=== PATIENT | female | born 1970 | race African-American/Black ===

== ENCOUNTER 2023-12-26 13:15 | Emergency (ER) | payer MEDICAID ==
[~2023-12-26] VITALS: Ht 167.6 cm; Wt 90.0 kg
[2023-12-26 13:26] VITALS: O2SAT 100
[2023-12-26] MEDS: KETOROLAC 15MG/ML VIAL IM ONE (14:21)
[2023-12-26] MEDS: ACETAMINOPHEN 500MG TABLET PO ONE (15:36)
[2023-12-26] MEDS ORDERED: LIDO700A15 TP (15:53)
[2023-12-26] MEDS ORDERED: NAPR-1176 MT (15:53)
[2023-12-26 16:07] VITALS: BP 124/58; PULSE 71; RESP 16; TEMP 36.89184; O2SAT 100
== END 2023-12-26 16:10 | disposition home or self-care (01) ==
LOC: ER 13:15
DX: S70.01XA Contusion of right hip, initial encounter (principal); I10 Essential (primary) hypertension; E11.9 Type 2 diabetes mellitus without complications; J44.9 Chronic obstructive pulmonary disease, unspecified; W01.0XXA Fall on same level from slipping, tripping and stumbling without subsequent striking against object, initial encounter; Y93.89 Activity, other specified; Y92.89 Other specified places as the place of occurrence of the external cause; Y99.8 Other external cause status
CPT/HCPCS: 73502; 99284; J1885